=== PATIENT | female | born 1955 | race Caucasian/White ===

== ENCOUNTER → 2016-08-16 16:57 | Outpatient (CLI) | payer BC ==
[2014-10-04 06:37] VITALS: BMI 42.6
[~2016-08-16 16:57] MED LIST: AVALIDE 300-12.1 TA1 PO; FLUTICASONE PRO16 GM NASAL; SYNTHROID175 MCG PO; ZOCOR20 MG PO; ZYRTEC10 MG PO
== END | disposition home or self-care (01) ==
LOC: D.MAMMO 11:30
DX: Z12.31 Encounter for screening mammogram for malignant neoplasm of breast (principal)

== ENCOUNTER 2017-09-17 06:42 | Day surgery (SDC) | payer BC ==
--- NOTE | ~2017-09-17 | OP ---
PATIENT NAME: COLLETTE MOON MEDICAL RECORD: [id number] :53 LOCATION:D.OPS ADMISSION DATE: SURGEON: DONNIE PADILLA MD DATE OF OPERATION: 09/17/2017 PREOPERATIVE DIAGNOSIS: History of colon polyps. POSTOPERATIVE DIAGNOSES: History of colon polyps with 2 new colon polyps, one was a sessile polyp that was a 6-mm polyp and the other one was a sessile polyp which was an 8-mm polyp. PROCEDURES: 1. Total colonoscopy to cecum. 2. Hot biopsy forceps polypectomies times 2. SURGEON: Donnie Padilla MD DYNAMITE PACKING MACHINE OPERATOR: None. BLOOD LOSS: Minimal. ANESTHESIA: IV sedation. COMPLICATIONS: None. The reason for the anesthesia staff being present during the procedure includes anxiety regarding the procedure. ENDOSCOPIC COURSE: The patient was conveyed to the endoscopy suite electively on 09/17/2017. IV sedation was induced by the anesthesia staff. The patient was placed in the Gomez position. A digital rectal examination was performed. A colonoscope was inserted through the anus. It was easily advanced to the cecum. The prep was fair. I slowly withdrew the endoscope. I irrigated and aspirated extensively. I dragged the folds. The 2 polyps were noted. These were removed in their entireties utilizing hot biopsy forceps polypectomy technique. A retroflexed view was obtained in the rectum. I then unretroflexed the scope and removed it under direct vision. I will see the patient in my office in 2-3 weeks. I will plan for her next surveillance colonoscopy to take place in 3 years. TRANSINT:[id number] Voice Confirmation ID: [id number] DOCUMENT ID: [id number] DONNIE PADILLA MD at 1607 CC: KELSEY CASTILLO [id number] DICTATION DATE: 09/17/17 1001 WREATH MAKER: 09/17/[address] [facility] 09/17/17 [place] [id number]
--- NOTE | ~2017-09-17 | HP ---
PATIENT: COLLETTE MOON MEDICAL RECORD: [id number] ACCOUNT: [id number] LOCATION:DLIZ : 53 ADMISSION DATE: 09/17/17 HISTORY AND PHYSICAL EXAMINATION CHIEF COMPLAINT: History of colon polyps. HISTORY OF PRESENT ILLNESS: The patient is here for colonoscopy. The risks, possible complications and alternatives to procedure were explained to the patient. She elects to proceed. PAST MEDICAL AND SURGICAL HISTORY: Hysterectomy, thyroidectomy, tonsillectomy, hypothyroidism, on replacement therapy, glaucoma, hypertension, sleep apnea on CPAP, asthma, COPD. SOCIAL HISTORY: Ex-smoker. ALLERGIES: ANANT INHIBITORS, AVELOX, CODEINE, PENICILLIN, AND SULFA. HOME MEDICINES: Fluticasone, hydrochlorothiazide, losartan, Synthroid, Zocor, Zyrtec, and others. PHYSICAL EXAMINATION: GENERAL: The patient does not appear acutely ill. She does not appear chronically ill. VITAL SIGNS: Reviewed. EARS: External ears appear normal. EYES: Extraocular movements are intact. NECK: Trachea is midline. CHEST: No intercostal retractions. PULMONARY: Nonlabored, no stridor. ABDOMEN: No peritonitis with movement. IMPRESSION: History of colon polyps. PLAN: Surveillance colonoscopy. TRANSINT:[id number] Voice Confirmation ID: [id number] DOCUMENT ID: [id number] BENNY PADILLA MD at 1607 CC: [id number] DICTATION DATE: 09/17/17916 AEROSOL LINE OPERATOR: 09/17/17 1000 [facility] 09/17/17 [place] [address]
[2017-09-17] MEDS ORDERED: HYZAAR 100-12.51 TAB PO (07:03)
[2017-09-17] MEDS ORDERED: HCTZ25 MG PO (07:04)
[2017-09-17] MEDS ORDERED: STIOLTO RESPIMAT4 GM INH (07:04)
[2017-09-17 07:16] VITALS: BMI 39.6
[2017-09-17] MEDS ORDERED: XALATAN 0.0052.5 ML EACH EYE (07:23)
[2017-09-17 07:50] LABS: CALC OSMOLALITY 278 mosm/kg (275-300); CALCIUM 8.9 mg/dL (8.5-10.1); CARBON DIOXIDE 29.4 mmol/L (21.0-32.0); CHLORIDE - SERUM 102 mmol/L (98-107); CREATININE - SERUM 0.7 mg/dL (0.6-1.3); GLUCOSE 122 mg/dL (74-106); POTASSIUM - SERUM 3.6 mmol/L (3.5-5.1); SODIUM 140 mmol/L (136-145); UREA NITROGEN 9 mg/dL (7-18); eGFR NON AFRICAN AMERICAN 90 mL/min (90-120)
[2017-09-17 08:20] LABS: BASOPHILS 0.7 % (0-2); EOSINOPHILS 4.5 % (0-7); HEMATOCRIT 35.4 % (36.0-48.0); HEMOGLOBIN 11.5 g/dL (12-16); IMMATURE GRANULOCYTES 0.2 % (0-5); LYMPHOCYTES 21.2 % (15-50); MCH 28.8 pg (26.0-34.0); MCHC 32.5 g/dL (31.0-37.0); MCV 88.7 fL (80.0-100.0); MEAN PLATELET VOLUME 9.8 fL (7.4-10.4); MONOCYTES 8.8 % (2-11); NEUTROPHILS 64.6 % (40-80); PLATELET COUNT 216 10x3/uL (130-400); RBC 3.99 10x6/uL (4.00-5.40); RDW 13.7 % (11.5-14.5); WBC 5.6 10x3/uL (4.8-10.8)
== END 2017-09-17 10:56 | disposition home or self-care (01) ==
LOC: D.OPS 06:42
PROVIDERS: Anesthesiology
DX: K63.5 Polyp of colon (principal); J45.909 Unspecified asthma, uncomplicated; J44.9 Chronic obstructive pulmonary disease, unspecified; G47.30 Sleep apnea, unspecified; I10 Essential (primary) hypertension; E03.9 Hypothyroidism, unspecified; E66.01 Morbid (severe) obesity due to excess calories; Z68.39 Body mass index [BMI] 39.0-39.9, adult; Z01.812 Encounter for preprocedural laboratory examination

== ENCOUNTER 2019-05-08 09:00 | Outpatient (CLI) | payer BC ==
[~2019-05-08 09:00] MED LIST changes: +HCTZ25 MG PO; +HYZAAR 100-12.51 TAB PO; +STIOLTO RESPIMAT4 GM INH; +XALATAN 0.0052.5 ML EACH EYE
== END 2019-05-08 10:00 | disposition home or self-care (01) ==
LOC: D.MAMMO 09:00
PROVIDERS: ATTEND Family Medicine
DX: Z12.31 Encounter for screening mammogram for malignant neoplasm of breast (principal)

== ENCOUNTER → 2019-09-14 13:48 | Outpatient (CLI) | payer MEDICARE, BC | END | disposition home or self-care (01) | LOC: D.RT 13:48 | PROVIDERS: ATTEND Internal Medicine Pulmonary Disease | DX: J44.9 Chronic obstructive pulmonary disease, unspecified (principal) ==

== ENCOUNTER 2020-11-14 13:00 | Outpatient (CLI) | payer MEDICARE, BC | END 2020-11-14 23:59 | disposition home or self-care (01) | LOC: D.MAMMO 13:00 | PROVIDERS: ATTEND Family Medicine | DX: Z12.31 Encounter for screening mammogram for malignant neoplasm of breast (principal) ==

== ENCOUNTER 2020-12-13 07:31 | Day surgery (SDC) | payer MEDICARE, BC ==
[~2020-12-13] VITALS: Ht 172.7 cm; Wt 122.7 kg
[2020-12-13 07:52] LABS: BASOPHILS 0.4 % (0-2); EOSINOPHILS 4.2 % (0-7); HEMATOCRIT 38.5 % (36.0-48.0); HEMOGLOBIN 12.3 g/dL (12-16); IMMATURE GRANULOCYTES 0.2 % (0-5); LYMPHOCYTE ABS# 1.43 10x3/uL (1.18-3.74); LYMPHOCYTES 27.4 % (15-50); MCH 29.4 pg (26.0-34.0); MCHC 31.9 g/dL (31.0-37.0); MCV 91.9 fL (80.0-100.0); MEAN PLATELET VOLUME 9.1 fL (7.4-10.4); MONOCYTES 8.8 % (2-11); NEUTROPHIL ABS# 3.07 10x3/uL (1.56-6.13); PLATELET COUNT 194 10x3/uL (130-400); RBC 4.19 10x6/uL (4.00-5.40); RDW 13.6 % (11.5-14.5); WBC 5.2 10x3/uL (4.8-10.8)
[2020-12-13 08:21] LABS: CALC OSMOLALITY 280 mosm/kg (275-300); CALCIUM 8.9 mg/dL (8.5-10.1); CARBON DIOXIDE 28.9 mmol/L (21.0-32.0); CHLORIDE - SERUM 104 mmol/L (98-107); CREATININE - SERUM 0.7 mg/dL (0.6-1.3); GLUCOSE 105 mg/dL (74-106); POTASSIUM - SERUM 3.9 mmol/L (3.5-5.1); SODIUM 140 mmol/L (136-145); UREA NITROGEN 17 mg/dL (7-18); eGFR NON AFRICAN AMERICAN 89 mL/min (90-120)
[2020-12-13 08:32] VITALS: Ht 172.7 cm; Wt 122.7 kg
[2020-12-13] MEDS ORDERED: IPRAT-ALBUT 0.5-3 ML UPD (08:41)
[2020-12-13] MEDS ORDERED: COMBIVENT RESPIM4 GM INH (08:42)
--- NOTE | 2020-12-13 11:45 | NUR ---
IV DC'D WITH TIP INTACT. DISCHARGE INSTRUCTIONS PROVIDED. WHEELED OUT TO CAR
--- NOTE | 2020-12-14 09:56 | HP ---
PATIENT: COLLETTE MOON MEDICAL RECORD: [id number] ACCOUNT: [id number] LOCATION:[facility] : 53 ADMISSION DATE: 12/13/20 PCP: KELSEY CASTILLO MD HISTORY AND PHYSICAL EXAMINATION PRINCIPAL DIAGNOSIS: History of colon polyps. HISTORY OF PRESENT ILLNESS: The patient has had minor hematochezia with her endoscopy prep. No significant abdominal pain. No melena. ALLERGIES: Reviewed. HOME MEDICATIONS: Reviewed. PAST MEDICAL AND SURGICAL HISTORY: COPD; hypertension; hypothyroidism, on replacement therapy; history of colon polyps. PHYSICAL EXAMINATION: GENERAL: The patient does not appear acutely ill. She does not appear chronically ill. VITAL SIGNS: Reviewed. EARS: External ears appear normal. EYES: Extraocular movements are intact. NECK: Trachea is midline. CHEST: No intercostal retractions. PULMONARY: Nonlabored. No stridor. IMPRESSION: History of colon polyps. PLAN: Will be surveillance colonoscopy. TRANSINT:[id number] Voice Confirmation ID: [id number] DOCUMENT ID: [id number] BENNY PADILLA MD at 0956 CC: KELSEY Samaniego [id number] DICTATION DATE: 12/13/20 1045 PAD CUTTER: 12/13/20 1110 [facility] 12/13/20 [place] [id number] [place] [address]
--- NOTE | 2021-01-16 14:25 | OP ---
PATIENT NAME: COLLETTE MOON MEDICAL RECORD: [id number] :53 LOCATION:D.OPS ADMISSION DATE: SURGEON: DONNIE PADILLA MD DATE OF OPERATION: 12/13/2020 PREOPERATIVE DIAGNOSES: History of colon polyps in need of surveillance colonoscopy. POSTOPERATIVE DIAGNOSES: History of colon polyps in need of surveillance colonoscopy with no new polyps or masses. PROCEDURE PERFORMED: Total colonoscopy to cecum. SURGEON: Donnie Padilla MD OVERCASTER: None. BLOOD LOSS: Minimal. ANESTHESIA: IV sedation. COMPLICATIONS: None. The risks, possible complications, and alternatives of the procedure were explained to the patient. She elects to proceed. ENDOSCOPIC COURSE: The patient was conveyed to endoscopy suite electively on 12/13/2020. IV sedation was induced by the anesthesia staff. The patient was placed in the Gomez position. Digital rectal examination was performed. A colonoscope was inserted through the anus. It was easily advanced to the cecum. The prep was adequate. I slowly withdrew the endoscope. I dragged the folds. The pullback was greater than 13-minute pullback. I irrigated and aspirated extensively. A combination of normal imaging and narrow band imaging were utilized. A retroflex view was obtained in the rectum. I then unretroflexed the scope and removed it under direct vision. As no biopsies were obtained, there is no need for her to follow up with me in the office. I will plan for her next surveillance colonoscopy to take place in 5 years. TRANSINT:[id number] Voice Confirmation ID: [id number] DOCUMENT ID: [id number] DONNIE PADILLA MD at 1425 CC: KELSEY CASTILLO [id number] DICTATION DATE: 01/15/21 1451 PROTECTION ENGINEER: 01/15/218 [facility] 12/13/20 [place] [id number]
== END 2020-12-13 11:37 | disposition home or self-care (01) ==
LOC: D.OPS 07:31
PROVIDERS: Anesthesiology; ATTEND Surgery
DX: Z86.010 Personal history of colon polyps (principal); J44.9 Chronic obstructive pulmonary disease, unspecified; I10 Essential (primary) hypertension; E03.9 Hypothyroidism, unspecified